=== PATIENT | male | born 1960 | race Caucasian/White ===

== ENCOUNTER → 2017-03-24 | Outpatient (CLI) | payer OTHER ==
[~2017-03-24] MED LIST: PROVENTIL0.09 MG/A1 IH
== END ==
LOC: COL.RAD 07:06
DX: S83.232A Complex tear of medial meniscus, current injury, left knee, initial encounter (principal); S83.282A Other tear of lateral meniscus, current injury, left knee, initial encounter; M17.12 Unilateral primary osteoarthritis, left knee; M71.22 Synovial cyst of popliteal space [Baker], left knee

== ENCOUNTER 2017-03-27 14:42 | Outpatient (RCR) | payer OTHER | END 2017-03-28 14:13 | LOC: WSOH 14:42 | DX: M25.562 Pain in left knee (principal) ==

== ENCOUNTER → 2017-05-13 | Outpatient (CLI) | payer BC | LOC: COL.RAD 07:07 | DX: Z01.818 Encounter for other preprocedural examination (principal); M17.12 Unilateral primary osteoarthritis, left knee; M71.22 Synovial cyst of popliteal space [Baker], left knee ==